=== PATIENT | male | born 1985 | race Caucasian/White ===

== ENCOUNTER 2017-12-27 15:31 | Outpatient (CLI) | payer OTHER ==
--- NOTE | 2017-12-27 16:45 | MRI ---
MRI LEFT KNEE PERFORMED WITHOUT CONTRAST ENHANCEMENT: 12/27/17 HISTORY: Injured knee playing softball. There is a complete ACL tear present. The posterior cruciate ligament is intact. The medial meniscus has a normal shape and appearance. There is a posterior horn lateral meniscus tea r which appears to be more of a radially oriented tear. There are some edema changes superficial and deep to the MCL which does appear to be intact. This cou ld indicate a grade I sprain. The lateral collateral ligamentous complex appears intact. The patellar articular cartilage is intact. The medial facet of the patella is slightly hypoplastic i n appearance. Medial and lateral patellar retinaculum and quadriceps and patellar tendons are unremar kable. There is a lobulated cystic structure which appears to originate near the tibial attachment of the ACL and extends along the anterior margin of the lateral femoral condyle. There is a moderate yuliana int effusion seen. Small Albrecht's cyst is noted. Typical ACL bone contusions of the posterior tibia and lateral femoral condyle are noted. IMPRESSION: 1. Complete ACL tear with associated bone contusions. There appears to be a loculated ACL cyst e xtending anteriorly and medially from the tibial insertion of the ACL. 2. Posterior horn lateral meniscus tear. POS: [facility]
== END 2017-12-27 15:32 | disposition home or self-care (01) ==
LOC: SCSMRI 15:31
PROVIDERS: ATTEND Orthopaedic Surgery
DX: S83.512A Sprain of anterior cruciate ligament of left knee, initial encounter (principal); S83.282A Other tear of lateral meniscus, current injury, left knee, initial encounter

== ENCOUNTER 2020-08-26 09:26 | Emergency (ER) | payer BC, OTHER ==
[2020-08-26 10:20] LABS: #Eosinphils 0.1 thou/uL (0.0-0.7); #Monocytes 0.3 thou/uL (0.11-0.59); #Neutrophils 3.6 thou/uL (1.40-6.50); %Basophils 0.8 % (0.0-1.0); %Lymphocytes 33.4 % (21.0-51.0); %Monocytes 4.7 % (0.0-10.0); %Neutrophils 59.1 % (42.0-75.0); Hemoglobin 18.6 g/dL (14.0-18.0); Mean Corpuscular HGB CONC 33.3 g/dL (32.0-36.0); Mean Corpuscular Hemoglobin 29.4 pg (27.0-31.0); Mean Corpuscular Volume 88.6 fL (78.0-98.0); Mean Platelet Volume 6.6 fL (7.4-10.4); Platelet Count 419 thou/uL (130-400); RBC Distribution Width 12.7 % (11.5-14.5); Red Blood Cell (RBC) Count 6.32 mill/uL (4.70-6.10)
[2020-08-26 10:37] LABS: ALT (SGPT) 32 U/L (8-55); AST (SGOT) 25 U/L (5-34); Albumin 4.9 g/dL (3.5-5.0); Alkaline Phosphatase 54 U/L (40-110); Anion Gap 14 mmol/L (10-20); BUN (Urea Nitrogen) 16 mg/dL (8.9-20.6); Bilirubin, Total 1.3 mg/dL (0.2-1.2); Calc. Creatinine Clearance 0 mL/min (70-130); Calcium 9.6 mg/dL (7.8-10.44); Carbon Dioxide 25 mmol/L (22-29); Chloride 102 mmol/L (98-107); Globulin 3.2 g/dL (2.4-3.5); Glucose 102 mg/dL (70-105); Potassium 4.2 mmol/L (3.5-5.1); Protein, Total 8.1 g/dL (6.0-8.3); Sodium 137 mmol/L (136-145)
--- NOTE | 2020-08-26 10:51 | CT ---
EXAM: CT face/orbits with contrast HISTORY: Worsening left eye irritation COMPARISON: None TECHNIQUE: Multiple contiguous axial images were obtained and a CT of the face/orbits with contrast. Sagittal and coronal reformats were performed. FINDINGS: No facial soft tissue swelling is seen. No focal fluid collection is identified. The globes and ret robulbar soft tissues are unremarkable. No facial fractures are identified. The visualized paranasal sinuses are well aerated without evidence of opacification. The mastoid air cells are well aerated. Visualized intracranial structures are unremarkable. IMPRESSION: No significant abnormality
[2020-08-26] MEDS ORDERED: Iopamidol-370 76% 500 ML 1 ML ONE (17:53)
== END 2020-08-26 11:13 | disposition home or self-care (01) ==
LOC: ERS 09:26
DX: H57.89 Other specified disorders of eye and adnexa (principal); J45.909 Unspecified asthma, uncomplicated
CPT/HCPCS: 70481; 80053; 85025; Q9967

== ENCOUNTER 2022-11-10 14:52 | Outpatient (CLI) | payer BC | END 2022-11-10 14:53 | disposition home or self-care (01) | LOC: BICRAD 14:52 | PROVIDERS: ATTEND Nurse Practitioner Family | DX: S69.91XA Unspecified injury of right wrist, hand and finger(s), initial encounter (principal) ==